=== PATIENT | male | born 1945 | race Caucasian/White ===

== ENCOUNTER → 2018-07-26 | Outpatient (CLI) | payer OTHER ==
[~2018-07-26] MED LIST: [UNRECOGNIZED DRUG - OTHER]; aspirin; cyanocobalamin; diltiazem; fish oil; hydrocodone; lisinopril; morphine; pantoprazole; pravastatin; prazosin; trazodone
== END | disposition home or self-care (01) ==
LOC: PETCFH 08:50
PROVIDERS: ATTEND Internal Medicine Hematology & Oncology
DX: R91.8 Other nonspecific abnormal finding of lung field (principal); J18.9 Pneumonia, unspecified organism; C34.12 Malignant neoplasm of upper lobe, left bronchus or lung
CPT/HCPCS: 78815; A9552